=== PATIENT | male | born 1985 | race Caucasian/White ===

== ENCOUNTER 2025-03-29 17:03 | Emergency (ER) | payer SELFPAY ==
[~2025-03-29] VITALS: Ht 188 cm; Wt 108.9 kg
[~2025-03-29 17:03] MED LIST: CYCL5TAB PO; NO HOME MEDS
--- NOTE | 2025-03-29 17:15 | ELECTROCARDIOGRAPH REPORT ---
[facility] Test Date: 2025-03-29 Test Time: 17:09:25 Pat Name: BURKE ROMAN Department: EMERGENCY ROOM [id number] Room: Gender: M Grape Cutter: TARUN : 1985 Requested By: DONNELL SORENSON Order Number: [id number] Reading MD: Dr. Donnell Sorenson Measurements Intervals [place] Rate: 86 P: 57 ND: 138 QRS: 98 QRSD: 82 T: -31 QT: 336 QTc: 402 Interpretive Statements Sinus rhythm Borderline right axis deviation Nonspecific T abnormalities, inferior leads Electronically Signed On 03-31-2025 6:16:[address] Donnell Sorenson Please click the below link to view image of tracing.
[2025-03-29 17:32] LABS: MEAN PLATELET VOLUME 9.0 FL (7.4-10.4); RED CELL DISTRIBUTION WIDTH 14.0 % (11.5-14.5)
[2025-03-29 17:51] LABS: CREATININE 1.22 MG/DL (0.60-1.10); TOTAL CARBON DIOXIDE 24.2 MMOL/L (24-32); eCRCL 95 ML/MIN; eGFR 66 ML/MIN
[2025-03-29 17:52] LABS: PRO BRAIN NATRIURETIC PEPTIDE < 30 PG/ML (0-125)
--- NOTE | 2025-03-29 18:40 | RADIOLOGY REPORT ---
CHEST RADIOGRAPH Indication: CP Technique: Single frontal view of the chest was obtained COMPARISON: None FINDINGS: Lines and Tubes: None Lungs: Clear Pleura: No effusion. No pneumothorax. Cardiomediastinal contours: Unremarkable Bones: Unremarkable IMPRESSION: 1. No acute disease.
[2025-03-29] MEDS ORDERED: OMEP40CA21 PO (20:19)
--- NOTE | 2025-03-29 20:19 | Physician Documentation ---
History of Present Illness ~ Chief Complaint: Chest Pain Stated Complaint: CHEST PAIN Time Seen by MD: 19:24 Primary Medical Doctor: none Mode of Arrival: POV, Ambulatory HPI 40 year old male with chest pain that he describes as sternal, radiating to his back, burning, and intermittent over the past couple of weeks. Occasionally this has been accompanied by the sensation that he is going to pass out and with some shortness of breath. He denies fever, cough, N/V/D, sore throat, headache. Medication Reconciliation Allergies: Coded Allergies: No Known Allergies (Unverified , 03/29/25) Scheduled Omeprazole (Prilosec), 1 CAP PO DAILY Scheduled PRN Cyclobenzaprine HCl (Flexeril), 1 TAB PO TID PRN for muscle spasms Miscellaneous Medications Home Med List (No Home Medications), (Reported) Past Medical History Past Medical History: No Pertinent History Past Surgical History: orthopedic surgeries Alcohol Use: None Drug Use: none Lives In: Home Occupation: employed Review of Systems All Other Systems at this time: Reviewed and Negative Physical Exam Vital Signs: RN Vital Signs have been reviewed: Yes, Temperature: 97.8, Source: Oral, Heart Rate: 85, Respiratory Rate: 16, BP: 133/88, Pulse Oximetry: 96, Weight: 108.900 Oxygen Flow Rate: 0 Physical Exam HEENT: PERRL, moist oral mucosa, EOMI Pulmonary: No respiratory distress CTAB Cardiac: RRR, no murmur, rub or gallop MSK: no deformity Skin: w/d/i, no rash Neuro: alert, nonfocal Psych: normal affect Progress Results/Orders Results/Orders Vital Signs 03/29/25 03/29/25 03/29/25 03/29/25 17:15 19:00 19:00 20:12 Temp 97.8 Pulse 85 65 70 Resp 18 16 16 B/P (MAP) 133/88 140/83 (102) 125/83 (97) Pulse Ox 96 98 98 O2 Flow Rate 0 0 0 03/29/25 20:42 Temp 98.1 Pulse 78 Resp 17 B/P (MAP) 140/93 Pulse Ox 99 Laboratory Tests Test 03/29/25 17:22 03/29/25 19:45 White Blood Count 7.0 Red Blood Count 5.16 Hemoglobin 15.5 Hematocrit 45.5 Mean Corpuscular Volume 88.2 Mean Corpuscular Hemoglobin 30.1 Mean Corpuscular Hemoglobin Concent 34.1 Red Cell Distribution Width 14.0 Platelet Count 190 Mean Platelet Volume 9.0 Neutrophils (%) (Auto) 61.8 Lymphocytes (%) (Auto) 27.8 Monocytes (%) (Auto) 7.6 Eosinophils (%) (Auto) 2.1 Basophils (%) (Auto) 0.7 Neutrophils # (Auto) 4.3 Lymphocytes # (Auto) 1.9 Monocytes # (Auto) 0.5 Eosinophils # (Auto) 0.1 Basophils # (Auto) 0.0 CBC Comment Sodium Level 138 Potassium Level 4.0 Chloride Level 104 Carbon Dioxide Level 24.2 Anion Gap 10 Blood Urea Nitrogen 16 Creatinine 1.22 H Estimated GFR/1.73 m2 66 BUN/Creatinine Ratio 13.1 Glucose Level 133 H Calcium Level 8.9 Troponin I High Sensitivity < 4 L 4 Troponin I High Sens Percent Delta Troponin I Hi Sens Absolute Change Pro-B-Type Natriuretic Peptide < 30 Albumin 3.7 Chemistry Comments EKG/XRAY/CT/US/VASC/MRI Chest X-Ray : Interpreted By: self Views: 1 VIEW Indication: chest pain Lungs: normal Mediastinum: normal Ribs/Bones: normal Abdomen: normal Impression: no acute disease Medical Decision Making Findings 40 year old male with nonspecific intermittent chest pain. No red flag historical elements for PE, and vital signs unremarkable. Workup was similarly unremarkable including CXR interpreted by me which demonstrated normal contours, no PTX, no PNA, no acute. EKG interpreted by me demonstrates normal sinus rhythm, rate of 86/minute, T-wave inversions in lead III, avF. Troponin negative x 2. Will prescribe PPI and we have talked about the possibility of PE and how at this time we have no CT scanner capability, but that since I have monitored his vital signs for some time in the ER and not seen any hypoxia or tachycardia, I do not feel that he has any significant pulmonary embolus that might endanger his life. We have talked about the possibility of a small subsegmental PE which could be causing his symptoms as well as a host of other diagnoses such as panic attack, GERD, PUD, esophagitis, etc. Counseled follow up with PCP and strict return precautions for worsening symptoms. Differential Dx:Considerations: Include: angina, cholelithiasis, myocardial infarction, pericarditis, pleuritis, pneumonia, pneumothorax, pulmonary embolus Additional Information Ddx includes panic attack Departure Disposition: HOME / SELF CARE / HOMELESS Impression: Primary Impression: Acute chest pain Discharge Instructions: Nonspecific Chest Pain, Adult Referrals: NO PRIMARY CARE PROVIDER (PCP) Prescriptions Omeprazole (Prilosec) 40 Mg Capsule 1 CAP PO DAILY, #30 CAP 3 Refills Prov: SAM CESPEDES MD 03/29/25 Education Educated: Patient Educated regarding: diagnosis, treatment, prognosis, need for follow up Signature Scribe Signature: . Attestation: . SAM ECSPEDES MD Mar 29, 2025 20:19
[2025-03-29 20:42] VITALS: BP 140/93; PULSE 78; RESP 17; TEMP 98.1; O2SAT 99
== END 2025-03-29 20:50 | disposition home or self-care (01) ==
LOC: ER 17:03
DX: R07.89 Other chest pain (principal); R06.02 Shortness of breath; Z79.899 Other long term (current) drug therapy
CPT/HCPCS: 36415; 71045; 80048; 83880; 84484; 85025; 93005; 99285; A6449